=== PATIENT | female | born 1940 | race Caucasian/White ===

== ENCOUNTER → 2018-05-10 | Outpatient (REF) | payer MEDICARE ==
[~2018-05-10] MED LIST: ALLEGRA-D 1212 HOUR PO; AMOXIL500 MG OR; AUGMENTIN500TAB PO; BC HEADACH1 PO; BENADRYL 50MG C50 MG PO; CIPROFLOXACIN250 MG PO; CYMBALTA20 MG PO; CYMBALTA30 MG PO; FLONASE NASAL50 MCG; FLULAVAL IM; GABAPENTIN300 MG PO; GLUCOTROL5 MG PO; LEXAPRO10 MG OR; LYRICA100 MG PO; MACRODANTIN50 MG PO; MEDDOSEPAK PO; MELOXICAM15 MG PO; METFORMIN HCL1000 MG PO; METFORMIN500 M2 PO; METFORMIN500 MG PO; NEXIUM40 M1 OR; NEXIUM40 M1 PO; ONE TOUCH ULTRA 50 XX; PEPCID20 MG PO; PREMPRO 0.625/21 TA1 PO; PREMPRO1 TA1 OR; TRAMADOL HCL50 MG PO; VALIUM2 MG OR; XANAX0.25 MG OR; ZANTAC 150 PO; ZPAK PO
[2018-05-10 11:39] LABS: ALKALINE PHOSPHATASE 106 u/l (38-126); ANION GAP 14 (6-22 (CALC)); BILIRUBIN, TOTAL 0.6 mg/dL (0.0-1.4); BUN 15 mg/dL (8-23); BUN/CREATININE RATIO 18 (12-20 (CALC)); CALCULATED LDLCHOLESTEROL 220 mg/dL (62-129 (CALC)); CARBON DIOXIDE 27 mmol/l (22-30); CHLORIDE 102 mmol/l (95-108); CHOLESTEROL HDL RATIO 4.5 (<4.4 (CALC)); CREATININE 0.8 mg/dL (0.5-1.0); GFR > 60 ML/MIN (>=60 (CALC)); GFR FOR AFR.AMER. > 60 ML/MIN (>=60 (CALC)); HDL CHOLESTEROL 67 mg/dL (>=40); POTASSIUM 4.8 mmol/l (3.5-5.1); SGOT/AST 23 u/l (9-36); SODIUM 139 mmol/l (137-146); TOTAL CHOLESTEROL 303 mg/dl (0-199); TOTAL PROTEIN 6.9 g/dL (6.3-8.2); TOTAL TRIGLYCERIDES 82 mg/dl (30-149); VLDL CHOLESTROL 16 mg/dl (0-48 (CALC))
== END | disposition home or self-care (01) ==
LOC: LAB 10:29
PROVIDERS: ATTEND Nurse Practitioner Family
DX: E11.9 Type 2 diabetes mellitus without complications (principal); E78.2 Mixed hyperlipidemia

== ENCOUNTER 2019-01-27 08:04 | Emergency (ER) | payer MEDICARE ==
[~2019-01-27] VITALS: Ht 165.1 cm; Wt 68.6 kg
[2019-01-27 09:11] LABS: HEMATOCRIT 40.7 % (37.0-47.0); IMMATURE GRANULOCYTES 0.3 % (0.0-5.0); MEAN CELL VOLUME 87.7 fL CALC (80.0-100.0); MEAN CORPUSCULAR HGB CONC 31.9 g/L CALC (32.0-36.0); NEUT# 8.24 thou/uL (2.00-7.15); RED BLOOD COUNT 4.64 mill/uL (4.20-5.60); RED CELL DISTRI WIDTH 14.3 % (11.5-15.5)
[2019-01-27 09:24] LABS: ALBUMIN 4.1 g/dL (3.2-5.0); ALKALINE PHOSPHATASE 107 u/l (38-126); ANION GAP 14 (6-22 (CALC)); BILIRUBIN, TOTAL 0.7 mg/dL (0.0-1.4); BUN 13 mg/dL (8-23); BUN/CREATININE RATIO 16 (12-20 (CALC)); CARBON DIOXIDE 26 mmol/l (22-30); CHLORIDE 102 mmol/l (95-108); CREATININE 0.8 mg/dL (0.5-1.0); GFR > 60 ML/MIN (>=60 (CALC)); GFR FOR AFR.AMER. > 60 ML/MIN (>=60 (CALC)); POTASSIUM 4.1 mmol/l (3.5-5.1); SGOT/AST 86 u/l (9-36); SODIUM 137 mmol/l (137-146); TOTAL PROTEIN 7.6 g/dL (6.3-8.2)
[2019-01-27 09:35] LABS: MYOGLOBIN 187 ng/mL (0 - 62)
[2019-01-27 09:57] LABS: PROTHROMBIN TIME 10.2 SECONDS (9.0-12.5)
[2019-01-27] MEDS ORDERED: [UNRECOGNIZED DRUG - OTHER] (10:39)
[2019-01-27] MEDS ORDERED: ASPIRIN325 MG PO (10:39)
[2019-01-27 10:52] VITALS: BP 127/72
== END 2019-01-27 11:09 | disposition short-term general hospital (02) ==
LOC: ED 08:04
PROVIDERS: Emergency Medicine
DX: I21.4 Non-ST elevation (NSTEMI) myocardial infarction (principal); E11.40 Type 2 diabetes mellitus with diabetic neuropathy, unspecified; Z79.84 Long term (current) use of oral hypoglycemic drugs
CPT/HCPCS: J1644

== ENCOUNTER 2019-02-14 09:01 | Emergency (ER) | payer MEDICARE ==
[~2019-02-14] VITALS: Ht 165.1 cm; Wt 63.6 kg
[~2019-02-14 09:01] MED LIST changes: +ASPIRIN325 MG PO; +[UNRECOGNIZED DRUG - OTHER]
[2019-02-14 10:30] LABS: HEMATOCRIT 36.3 % (37.0-47.0); HEMOGLOBIN 11.2 g/dl (12.0-16.0); IMMATURE GRANULOCYTES 0.6 % (0.0-5.0); MEAN CORPUSCULAR HGB 28.8 pG CALC (26.0-32.0); MEAN CORPUSCULAR HGB CONC 30.9 g/L CALC (32.0-36.0); NEUT# 9.72 thou/uL (2.00-7.15); RED BLOOD COUNT 3.89 mill/uL (4.20-5.60)
[2019-02-14 10:34] LABS: MEAN CELL VOLUME 93.3 fL CALC (80.0-100.0)
[2019-02-14 10:52] LABS: ANION GAP 13 (6-22 (CALC)); BUN 17 mg/dL (8-23); BUN/CREATININE RATIO 21 (12-20 (CALC)); CARBON DIOXIDE 24 mmol/l (22-30); CHLORIDE 100 mmol/l (95-108); CREATININE 0.8 mg/dL (0.5-1.0); GFR > 60 ML/MIN (>=60 (CALC)); GFR FOR AFR.AMER. > 60 ML/MIN (>=60 (CALC)); POTASSIUM 4.9 mmol/l (3.5-5.1); SODIUM 132 mmol/l (137-146)
[2019-02-14 15:45] VITALS: BP 98/78
== END 2019-02-14 15:45 | disposition short-term general hospital (02) ==
LOC: ED 09:01
PROVIDERS: Family Medicine
DX: I21.4 Non-ST elevation (NSTEMI) myocardial infarction (principal); I48.91 Unspecified atrial fibrillation; E11.40 Type 2 diabetes mellitus with diabetic neuropathy, unspecified; Z79.84 Long term (current) use of oral hypoglycemic drugs; Z95.1 Presence of aortocoronary bypass graft; R06.02 Shortness of breath
CPT/HCPCS: J1644

== ENCOUNTER 2023-02-07 09:01 | Observation (INO) | payer MEDICARE ==
[~2023-02-07] VITALS: Ht 165.1 cm; Wt 60.2 kg
[2023-02-07] VITALS (15 sets, daily range): BP systolic 92–171; BP diastolic 54–90
--- NOTE | 2023-02-07 09:22 | NUR ---
PT TO ROOM VIA EMS
[2023-02-07] MEDS ORDERED: LOPRESSOR 550 MG/TAB PO (09:29)
[2023-02-07] MEDS ORDERED: COZAAR25 MG PO (09:30)
[2023-02-07] MEDS ORDERED: METFORMIN500 M2 PO (09:30)
[2023-02-07] MEDS ORDERED: EZETIMIBE10 MG (09:30)
[2023-02-07] MEDS ORDERED: ASPIRIN325 MG PO (09:31)
--- NOTE | 2023-02-07 09:56 | NUR ---
report receieved from nurse.
--- NOTE | 2023-02-07 09:57 | NUR ---
REPORT TO [facility] RELINQUISHED
[2023-02-07 10:03] LABS: BASO% 0.9 % (0-3); EOS% 5.6 % (0-8); HEMATOCRIT 42.1 % (37.0-47.0); IMMATURE GRANULOCYTES 0.1 % (0.0-5.0); LYMPH% 29.9 % (15-41); MEAN CELL VOLUME 89.4 fL CALC (80.0-100.0); MEAN CORPUSCULAR HGB 27.6 pG CALC (26.0-32.0); MEAN CORPUSCULAR HGB CONC 30.9 g/dL CAL (32.0-36.0); MONO% 6.5 % (2-13); NEUT# 3.83 thou/uL (2.00-7.15); RED BLOOD COUNT 4.71 mill/uL (4.20-5.60); RED CELL DISTRI WIDTH 14.3 % (11.5-15.5)
[2023-02-07 10:16] LABS: ALBUMIN 4.5 g/dL (3.2-5.0); ALKALINE PHOSPHATASE 106 u/l (38-126); ANION GAP 18 (6-22 (CALC)); BILIRUBIN, TOTAL 0.6 mg/dL (0.02-1.3); BUN 19 mg/dL (8-23); BUN/CREATININE RATIO 18 (12-20 (CALC)); CALCULATED LDLCHOLESTEROL 85 mg/dL (62-129 (CALC)); CARBON DIOXIDE 23 mmol/l (22-30); CHLORIDE 101 mmol/l (95-108); CHOLESTEROL HDL RATIO 2.4 (<4.4 (CALC)); CREATININE 1.1 mg/dL (0.5-1.0); GFR FOR AFR.AMER. 58 ML/MIN (>=60 (CALC)); GFR OTHER RACES 48 ML/MIN (>=60 (CALC)); HDL CHOLESTEROL 77 mg/dL (39.0-59.0); POTASSIUM 4.2 mmol/l (3.5-5.1); SGOT/AST 37 u/l (9-36); SODIUM 137 mmol/l (137-146); TOTAL CHOLESTEROL 183 mg/dl (0-199); TOTAL PROTEIN 7.6 g/dL (6.3-8.2); TOTAL TRIGLYCERIDES 109 mg/dl (0-149); VLDL CHOLESTROL 22 mg/dl (0-48 (CALC))
[2023-02-07 10:19] LABS: PROTHROMBIN TIME 9.9 SECONDS (9.0-12.5)
--- NOTE | 2023-02-07 10:30 | NUR ---
PT ADVISED OF CONTINUED WAIT TIMES. PT VERBALZIED NO NEEDS AT THIS TIME.
--- NOTE | 2023-02-07 11:55 | NUR ---
PT IN STRETCHER. PT VERBALIZED NO NEEDS.
[2023-02-07 12:45] LABS: URINE BILIRUBIN - DIPSTICK Negative (NEGATIVE); URINE BLOOD DIPSTICK Negative (NEGATIVE); URINE GLUCOSE - DIPSTICK Negative (NEGATIVE); URINE KETONE Negative (NEGATIVE); URINE LEUK ESTERASE Negative (NEGATIVE); URINE NITRITE - DIPSTICK Negative (Negative); URINE PH 6.5 (4.5-8.0); URINE PROTEIN - DIPSTICK Negative (NEG-TRACE); URINE UROBILINOGEN - DIPSTICK 0.2 E.U./dL (0.2)
--- NOTE | 2023-02-07 12:45 | NUR ---
REPORT PROVIDED TO [facility] NURSE. PT JOY GATHERED. PT TAKEN TO [facility].
[2023-02-07 12:46] LABS: URINE COLOR Yellow
--- NOTE | 2023-02-07 13:00 | NUR ---
PT ARRIVED VIA WC WITH ASSISTANT BUYER PT ABLE TO AMBULATE SELF TO BED VIA STAND BY ASSIST. OREIENTATED PT TO ROOM AND CALL [facility]. DRINKS PROVIDED ADMISSION ASSESSMENT ALLOWED. PT A&OX3 TELE IN PLACE, CONTINOUS MONITORING PER ED IV PATENT/ FLUSHED STATES NO PAIN AT THIS TIME. FALL/SAFTEY PRECAUTION IN PLACE, CALL LIGHT WITHIN REACH
[2023-02-07] MEDS ORDERED: TOPROL XL50 MG PO (13:44)
--- NOTE | 2023-02-07 16:00 | NUR ---
PT RESTING IN BED. N O DISTRESS NOTED. BREATHING EVEN AND UNLABORED. FALL/SAFTEY PRECAUTION IN PLACE. CALL LIGHT WITHIN REACH
--- NOTE | 2023-02-07 20:00 | NUR ---
RECEIVED BEDSIDE REPORT FROM [facility]SHIFT NURSE. PT IS SITTING UP IN BED AT THIS TIME. PT MADE AWARE OF CHANGE OF STAFF AND PLAN OF CARE HAS BEEN REVIEWED. PT COMPLAINS OF ARM FEELING NUMB. ADVISED PT WILL BE AWARE AND WILL CONTINUE TO MONITOR. SAFETY PRECAUTIONS IN PLACE AND CALL LIGHT WITHIN REACH.
[2023-02-07 20:01] LABS: CALCULATED LDLCHOLESTEROL 77 mg/dL (62-129 (CALC)); CHOLESTEROL HDL RATIO 2.4 (<4.4 (CALC)); HDL CHOLESTEROL 67 mg/dL (39.0-59.0); TOTAL CHOLESTEROL 161 mg/dl (0-199); TOTAL TRIGLYCERIDES 81 mg/dl (0-149); VLDL CHOLESTROL 16 mg/dl (0-48 (CALC))
[2023-02-08] VITALS: BP 125/54
--- NOTE | 2023-02-08 | NUR ---
PT IS IN BED SLEEPING COMFORTABLY AT THIS TIME. NO SIGNS OF PAIN OR DISCOMFORT. SAFETY PRECAUTIONS IN PLACE AND CALL LIGHT WITHIN REACH.
--- NOTE | 2023-02-08 02:30 | NUR ---
PT COMPLAINS OF PAIN IN ARM FROM ELBOW TO FINGERS. FEELING OF NUMBNESS. CALL HAS BEEN PLACED TO PHYSICIAN. MEDICATION HAS BEEN ORDERED.
[2023-02-08 03:58] VITALS: BP 146/53
[2023-02-08 04:00] VITALS: BP 146/53
--- NOTE | 2023-02-08 04:00 | NUR ---
PT STATES HISTORY OF TAKING LYRICA AND HAVING A REACTION. PHARMACY HAS BEEN CALLED AND CONSULTED. PHARACIST RECOMENDS TO HOLD MEDICATION AND TO MAKE PHYCISIAN AWARE. PT STATES THAT PAIN IS BETTER AND WILL WAIT.
[2023-02-08 07:09] VITALS: BP 137/47
[2023-02-08 07:46] LABS: HEMATOCRIT 41.5 % (37.0-47.0); MEAN CELL VOLUME 89.6 fL CALC (80.0-100.0); MEAN CORPUSCULAR HGB 28.1 pG CALC (26.0-32.0); MEAN CORPUSCULAR HGB CONC 31.3 g/dL CAL (32.0-36.0); RED BLOOD COUNT 4.63 mill/uL (4.20-5.60); RED CELL DISTRI WIDTH 14.4 % (11.5-15.5)
[2023-02-08 07:54] LABS: ALBUMIN 3.8 g/dL (3.2-5.0); ALKALINE PHOSPHATASE 97 u/l (38-126); ANION GAP 14 (6-22 (CALC)); BILIRUBIN, TOTAL 0.8 mg/dL (0.02-1.3); BUN 18 mg/dL (8-23); BUN/CREATININE RATIO 19 (12-20 (CALC)); CARBON DIOXIDE 23 mmol/l (22-30); CHLORIDE 105 mmol/l (95-108); CREATININE 0.9 mg/dL (0.5-1.0); GFR FOR AFR.AMER. > 60 ML/MIN (>=60 (CALC)); GFR OTHER RACES 60 ML/MIN (>=60 (CALC)); MAGNESIUM 2.1 mg/dL (1.6-2.3); POTASSIUM 4.4 mmol/l (3.5-5.1); SGOT/AST 34 u/l (9-36); SODIUM 137 mmol/l (137-146); TOTAL PROTEIN 6.5 g/dL (6.3-8.2)
--- NOTE | 2023-02-08 08:00 | NUR ---
PT SITTING UP ON EDGE OF BED EATING LUNCH. PT HAS NO C/O PAIN AT THIS TIME. PT HAS CALL LIGHT WITHIN REACH AND SAFETY MEASURES IN PLACE AT THIS TIME.
--- NOTE | 2023-02-08 08:00 | NUR ---
PT SITTING UP ON EDGE OF BED EATING BREAKFAST. PT IS ALERT AND ORIENTED X3. PT HAS NO C/O PAIN AT THIS TIME; ONLY COMPLAINS OF CONTINUED NUMBNESS IN LOWER LEFT ARM. PT TELE ON WITH ALL LEADS ATTACHED. LUNGS CLEAR THROUGOUT, PT BREATHING IS NON LABORED. PT ABD IS SOFT WITH ACTIVE BS. IV SITE IS CLEAN AND INTACT. PT AMBULATES WELL TO BATHROOM FOR TOIELTING NEEDS. PT HAS CALL LIGHT WITHIN REACH AND SAFETY MEASURES IN PLACE AT THIS TIME.
[2023-02-08 08:25] VITALS: BP 157/60
--- NOTE | 2023-02-08 08:30 | NUR ---
NRI SCREEN COMPLETED.
[2023-02-08 10:25] VITALS: BP 126/54
--- NOTE | 2023-02-08 10:30 | NUR ---
NEUROLOGY ON TH TO SEE PT.
--- NOTE | 2023-02-08 15:57 | NUR ---
Discharge instructions given. Patient verbalizes understanding of same. Discharged in stable condition via Wheelchair to Home with family. All belongings sent with pt.
== END 2023-02-08 15:57 | disposition home or self-care (01) ==
LOC: ED 09:01 → ED-I 10:49 → ED 11:03 → MS2 11:04
PROVIDERS: Family Medicine; ADMIT Student in an Organized Health Care Education/Training Program; ATTEND Student in an Organized Health Care Education/Training Program
DX: R20.2 Paresthesia of skin (principal); R20.0 Anesthesia of skin; M79.642 Pain in left hand; M47.812 Spondylosis without myelopathy or radiculopathy, cervical region; I10 Essential (primary) hypertension; E11.40 Type 2 diabetes mellitus with diabetic neuropathy, unspecified; I25.2 Old myocardial infarction; I25.10 Atherosclerotic heart disease of native coronary artery without angina pectoris; M35.00 Sjogren syndrome, unspecified; H35.30 Unspecified macular degeneration; Z79.82 Long term (current) use of aspirin; Z79.84 Long term (current) use of oral hypoglycemic drugs; Z95.1 Presence of aortocoronary bypass graft

== ENCOUNTER 2024-02-09 07:05 | Emergency (ER) | payer MEDICARE ==
[~2024-02-09] VITALS: Ht 165.1 cm; Wt 54.4 kg
[~2024-02-09 07:05] MED LIST changes: +CEPHALEXIN500 M1 PO; +COZAAR25 MG PO; +DOXY-CAPS100 MG PO; +EZETIMIBE10 MG; +LOPRESSOR 550 MG/TAB PO; +TOPROL XL50 MG PO
[2024-02-09 07:30] LABS: URINE BILIRUBIN - DIPSTICK Negative (NEGATIVE); URINE BLOOD DIPSTICK Trace-intact (NEGATIVE); URINE GLUCOSE - DIPSTICK Negative (NEGATIVE); URINE PROTEIN - DIPSTICK Trace mg/dL (NEG-TRACE); URINE UROBILINOGEN - DIPSTICK 0.2 E.U./dL (0.2)
[2024-02-09 07:32] LABS: URINE COLOR Yellow; URINE LEUK ESTERASE Large (NEGATIVE); URINE NITRITE - DIPSTICK Positive (Negative)
[2024-02-09 07:33] LABS: URINE KETONE Negative (NEGATIVE)
[2024-02-09 07:39] LABS: URINE BACTERIA FEW hpf; URINE EPITHELIAL CELLS FEW EPI/hpf (0-FEW); URINE RBC 0-2 RBC/hpf (0-5); URINE WBC 50-100 WBC/hpf (0-5)
[2024-02-09] MEDS ORDERED: MACROBID100 M1 PO (07:40)
[2024-02-09] MEDS ORDERED: PYRIDIUM200 MG PO (07:40)
[2024-02-09] MEDS ORDERED: NITROFURANTOIN 100 MG/CAP PO ONE (07:45)
[2024-02-09] MEDS ORDERED: PHENAZOPYRIDINE HCL 100 MG/TAB PO ONE (07:45)
[2024-02-09 08:16] VITALS: BP 134/77
== END 2024-02-09 08:20 | disposition home or self-care (01) ==
LOC: ED 07:05
PROVIDERS: Family Medicine
DX: N30.91 Cystitis, unspecified with hematuria (principal); B96.20 Unspecified Escherichia coli [E. coli] as the cause of diseases classified elsewhere; I25.10 Atherosclerotic heart disease of native coronary artery without angina pectoris; I10 Essential (primary) hypertension; E11.9 Type 2 diabetes mellitus without complications; E78.5 Hyperlipidemia, unspecified; Z95.1 Presence of aortocoronary bypass graft; I25.2 Old myocardial infarction